=== PATIENT | male | born 1970 | race Caucasian/White ===

== ENCOUNTER 2022-02-17 09:29 | Emergency (ER) | payer SELFPAY ==
[2022-02-17] MEDS ORDERED: predniSONE 20 MG TAB ONE (10:22)
== END 2022-02-17 10:30 | disposition home or self-care (01) ==
LOC: ERS 09:29
DX: L40.9 Psoriasis, unspecified (principal); Z87.891 Personal history of nicotine dependence
CPT/HCPCS: 99282; J7512

== ENCOUNTER 2022-03-13 08:31 | Emergency (ER) | payer SELFPAY ==
[2022-03-13] MEDS ORDERED: predniSONE 20 MG TAB ONE (10:05)
== END 2022-03-13 10:32 ==
LOC: ERS 08:31
DX: L40.9 Psoriasis, unspecified (principal)
CPT/HCPCS: 99282; J7512